=== PATIENT | male | born 1960 | race Caucasian/White ===

== ENCOUNTER → 2024-02-10 14:46 | Outpatient (REF) | payer BC, SELFPAY | LOC: RAD 14:46 | PROVIDERS: ATTENDING PHYSICIAN Internal Medicine | DX: F17.200 Nicotine dependence, unspecified, uncomplicated (principal) | CPT/HCPCS: 71271 ==

== ENCOUNTER → 2024-03-15 06:28 | Day surgery (SDC) | payer BC, SELFPAY | LOC: GI 06:28 | PROVIDERS: ATTENDING PHYSICIAN Specialist | DX: Z12.11 Encounter for screening for malignant neoplasm of colon (principal); Z86.010 Personal history of colon polyps; K57.30 Diverticulosis of large intestine without perforation or abscess without bleeding; D12.3 Benign neoplasm of transverse colon; D12.4 Benign neoplasm of descending colon; K62.1 Rectal polyp; K63.5 Polyp of colon; K22.70 Barrett's esophagus without dysplasia | CPT/HCPCS: 45385; 45380; 43239; 88305 ==

== ENCOUNTER → 2025-02-08 06:55 | Outpatient (REF) | payer BC, SELFPAY | LOC: RAD 06:55 | PROVIDERS: ATTENDING PHYSICIAN Internal Medicine | DX: K80.20 Calculus of gallbladder without cholecystitis without obstruction (principal) | CPT/HCPCS: 76700 ==

== ENCOUNTER → 2025-04-10 16:35 | Outpatient (REF) | payer BC, SELFPAY | LOC: RAD 16:35 | PROVIDERS: ATTENDING PHYSICIAN Internal Medicine | DX: F17.200 Nicotine dependence, unspecified, uncomplicated (principal) | CPT/HCPCS: 71271 ==